=== PATIENT | male | born 1985 | race Caucasian/White ===

== ENCOUNTER 2017-07-08 20:12 | Emergency (ER) | payer OTHER ==
[~2017-07-08] VITALS: Ht 170.2 cm; Wt 65.8 kg
[~2017-07-08 20:12] MED LIST: Omeprazole20 M1 PO
[2017-07-08 20:52] LABS: Influenza A Negative (NEGATIVE); Influenza B Negative (NEGATIVE)
[2017-07-08] MEDS ORDERED: LEVFLO500 PO (21:03)
== END 2017-07-08 21:21 | disposition home or self-care (01) ==
LOC: ER 20:12
PROVIDERS: Emergency Medicine
DX: S94.92XA Injury of unspecified nerve at ankle and foot level, left leg, initial encounter (principal); J18.9 Pneumonia, unspecified organism; X58.XXXA Exposure to other specified factors, initial encounter
CPT/HCPCS: 71020; 73630; 87804; 99284